=== PATIENT | female | born 1980 | race Caucasian/White ===

== ENCOUNTER → 2017-02-16 | Day surgery (SDC) | payer OTHER ==
[~2017-02-16] MED LIST: ALPR.25 PO; GING500C PO; HYDR10SO PO; LACTATED RINGER'S 1000 ML INJ 1,000 ML ONE; META0.52 PO; PROPOFOL 200 MG/20 ML AMP IV ONE; TURMPOW PO; VITA100020 IM
--- NOTE | 2017-02-16 09:33 | GIPROC ---
[facility] [address] [facility], [address] COLONOSCOPY PROCEDURE REPORT EXAM DATE: 02/16/2017 PATIENT NAME: Chelsea Reyna MR #: [id number] BIRTHDATE: 1980 ENDOSCOPIST: Lakhwinder Garcia MD ORDER #: [id number] ACADEMIC MANAGER: STATUS: outpatient INDICATIONS: The patient is a 37 yr old female here for a colonoscopy due to average risk patient for colon cancer PROCEDURE PERFORMED: Colonoscopy, screening MEDICATIONS: None, Per Anesthesia, None, and Per Anesthesia. PREP QUALITY: excellent ESTIMATED BLOOD LOSS: None CONSENT: The patient understands the risks and benefits of the procedure and understands that these risks include, but are not limited to: sedation, allergic reaction, infection, perforation and/or bleeding. Alternative means of evaluation and treatment include, among others: physical exam, x-rays, and/or surgical intervention. The patient elects to proceed with this endoscopic procedure. medical equipment was checked for proper function. Hand hygiene and appropriate measures for infection prevention was taken. After the risks, benefits and alternatives of the procedure were thoroughly explained, Informed consent was verified, confirmed and timeout was successfully executed by the treatment team. A digital exam revealed no abnormalities of the rectum The EC-[id number] ([id number]) endoscope was introduced through the anus and advanced to the cecum, which was identified by both the appendix and ileocecal valve. The instrument was then slowly withdrawn as the colon was fully examined. COLON FINDINGS: The colonic mucosa appeared normal. Retroflexed views revealed no abnormalities The scope was then completely withdrawn from the patient and the procedure terminated. PROCEDURE WITHDRAWAL TIME:9.6minutes ADVERSE EVENTS: There were no complications. IMPRESSIONS: 1. The colonic mucosa appeared normal 2. Retroflexed views revealed no abnormalities 3. Revealed no abnormalities of the rectum RECOMMENDATIONS: 1. High fiber diet 2. Yearly hemoccult 3. Follow-up: GI Clinic PRN RECALL: Lakhwinder Garcia MD eSigned: Lakhwinder Garcia MD 02/16/2017 9:33 AM cc: Fariba Moyer M.D and Jose C Lubin [facility] [place] DOCUMENT ADDENDUM eSigned: Lakhwinder Garcia MD 02/16/2017 9:39 AM Reason for addendum: [x] Correction of inaccurate information [ ] Recently acquired lab/pathology results [ ] Additional information Comments: indication is for anemia and constipation and not for screening PATIENT NAME: Chelsea Reyna MR#: [id number]
--- NOTE | 2017-02-16 09:38 | GIPROC ---
[facility] [address] [facility], [address] EGD PROCEDURE REPORT EXAM DATE: 02/16/2017 PATIENT NAME: Chelsea Reyna MR #: [id number] BIRTHDATE: 1980 ATTENDING: Lakhwinder Garcia MD ORDER #: [id number] HATCHERY ATTENDANT: Laurie Cool RN STATUS: outpatient INDICATIONS: The patient is a 37 yr old female here for an EGD due to anemia PROCEDURE PERFORMED: EGD w/ biopsy MEDICATIONS: None, Per Anesthesia, None, and Per Anesthesia. TOPICAL ANESTHETIC: CONSENT: The patient understands the risks and benefits of the procedure and understands that these risks include, but are not limited to: sedation, allergic reaction, infection, perforation and/or bleeding. Alternative means of evaluation and treatment include, among others: physical exam, x-rays, and/or surgical intervention. The patient elects to proceed with this endoscopic procedure. medical equipment was checked for proper function. Hand hygiene and appropriate measures for infection prevention was taken. After the risks, benefits and alternatives of the procedure were thoroughly explained, Informed consent was verified, confirmed and timeout was successfully executed by the treatment team. The patient was anesthetized with topical anesthesia and the EC-[id number] ([id number]) endoscope was introduced through the mouth and advanced to the second portion of the duodenum. Retroflexed views revealed no abnormalities The gastroscope was then slowly withdrawn and removed. STOMACH: There was mild gastritis in the gastric antrum. Multiple biopsies were performed. The endoscopy was otherwise normal. Biopsies from the duodenum. ADVERSE EVENTS: There were no complications. IMPRESSIONS: 1. There was mild gastritis in the gastric antrum; multiple biopsies were performed 2. Normal endoscopy otherwise 3. Retroflexed views revealed no abnormalities RECOMMENDATIONS: 1. Await biopsy results. Biopsy results will not be ready for 7-10 days. If you don't hear from us in two weeks, call our office for biopsy results. 2. Follow-up: GI clinic 4 week(s) PATIENT CONDITION: stable DISPOSITION: Home REPEAT EXAM: Lakhwinder Garcia MD eSigned: Lakhwinder Garcia MD 02/16/2017 9:38 AM cc: Piotr Johnson
== END | disposition home or self-care (01) ==
LOC: ESDC 07:46
PROVIDERS: ATTEND Internal Medicine Gastroenterology
DX: K59.00 Constipation, unspecified (principal); D64.9 Anemia, unspecified; K29.70 Gastritis, unspecified, without bleeding
CPT/HCPCS: 00740; 00810; 43239; 45378; 88305; J3010; J7120